=== PATIENT | female | born 1950 | race Caucasian/White ===

== ENCOUNTER 2017-03-07 02:48 | Inpatient (IN) | payer MEDICARE, OTHER ==
[~2017-03-07] VITALS: Ht 175.3 cm; Wt 106.1 kg
--- NOTE | 2017-03-07 03:02 | NUR ---
pt ambulatory w/ steady gait, c/o LUE pain radiates to neck x yesterday morning, no trauma, report tried taking advil 3 tab tid yesterday w/ no relief of pain. AOx4, afebrile w/ resp even & unlabored, denies any sob, no cp, report unable to move LUE d/t pain, CMS to LUE intact. EKG at bedside. Pending further evselvin RIDER.
--- NOTE | 2017-03-07 03:11 | NUR ---
Dr. Meléndez at bedside for further eval.
--- NOTE | 2017-03-07 03:28 | NUR ---
[facility] STARTED, LABS DRAWN & SENT. CXR AT BEDSIDE.
[2017-03-07 03:36] LABS: BASOPHILS % (AUTO) 0.5 % (0.0-2.0); EOSINOPHILS # (AUTO) 0.1 /CMM (0.0-0.7); EOSINOPHILS % (AUTO) 1.6 % (0.0-6.0); HEMATOCRIT 38 % (33-45); HEMOGLOBIN 12.8 g/dL (11.5-14.8); LYMPHOCYTES # (AUTO) 1.3 /CMM (0.8-4.8); MEAN CORPUSCULAR HEMOGLOBIN 28 PG (26.0-33.0); MEAN CORPUSCULAR HGB CONC 34 g/dl (31.0-36.0); MEAN CORPUSCULAR VOLUME 85 fL (82-100); MONOCYTES # (AUTO) 0.7 /CMM (0.1-1.30); MONOCYTES % (AUTO) 10.6 % (2.0-12.0); NEUTROPHILS # (AUTO) 4.7 /CMM (1.8-8.9); NEUTROPHILS % (AUTO) 68.3 % (43.0-81.0); PLATELET COUNT (AUTO) 218 /CMM (150-450); RDW COEFFICIENT OF VARIATION 14.2 (11.5-15.0); WHITE BLOOD COUNT (AUTO) 6.9 K/uL (4.3-11.0)
[2017-03-07 03:47] LABS: CALCIUM, SERUM 9.4 mg/dL (8.5-10.1); CARBON DIOXIDE 27 mmol/L (21-32); CHLORIDE 109 mmol/L (98-107); CREATININE 0.8 mg/dL (0.6-1.3); GLUCOSE 149 mg/dL (74-106); SODIUM SERUM 144 mmol/L (136-145); UREA NITROGEN, BLOOD 21 mg/dL (7-18)
[2017-03-07] MEDS ORDERED: MORPHINE SULFATE INJ 10 MG/ML DISP.SYRIN ONE (03:48)
[2017-03-07 03:53] LABS: ALANINE AMINOTRANSFERASE 23 U/L (12-78); ALBUMIN 3.6 g/dL (3.4-5.0); ALKALINE PHOSPHATASE 112 U/L (46-116); ASPARTATE AMINOTRANSFERASE 11 U/L (15-37); BILIRUBIN,DIRECT 0.1 mg/dL (0.0-0.2); BILIRUBIN,TOTAL 0.5 mg/dL (0.2-1.0); TOTAL PROTEIN, SERUM 6.9 g/dL (6.4-8.2)
[2017-03-07 03:55] LABS: INR 0.9 (0.87-1.13); PROTHROMBIN TIME 9.3 SECS (9.5-12.7); TROPONIN I < 0.017 ng/mL (0.00-0.056)
[2017-03-07] MEDS ORDERED: MORPHINE SULFATE INJ 2 MG/ML DISP.SYRIN IV ONE (04:00)
--- NOTE | 2017-03-07 04:30 | NUR ---
pt resting comfortably in bed w/ resp even & unlabored, continues to have LUE pain, tolerable at this time. On continuous monitoring.
--- NOTE | 2017-03-07 04:52 | NUR ---
Report given to MARTY Hernandez for BLANKA, pt admission to tele rm [id number].
--- NOTE | 2017-03-07 05:02 | NUR ---
[facility] Dr. Suzi reeves.
--- NOTE | 2017-03-07 05:33 | NUR ---
Dr. Archer on phone w/ Dr. Meléndez.
[2017-03-07] MEDS ORDERED: HYDROCODONE/APAP 5/325MG 1 EACH TABLET ONE (05:54)
[2017-03-07] MEDS ORDERED: ENOXAPARIN SODIUM 40 MG/0.4 ML DISP.SYRIN SQ ONE (05:55)
[2017-03-07] MEDS: HYDROCODONE/APAP 5/325MG 1 EACH TABLET PO PRN ×4 (05:56→18:30)
[2017-03-07 06:00] VITALS: BP 115/68
[2017-03-07] MEDS ORDERED: ZOLPIDEM TARTRATE 5 MG TABLET PO PRN (06:00)
[2017-03-07] MEDS ORDERED: Z GUARD REMEDY 2 OZ OINT TP PRN (06:00)
[2017-03-07] MEDS ORDERED: MAGNESIUM HYDROXIDE 30 ML UDC PO PRN (06:00)
[2017-03-07] MEDS ORDERED: ENOXAPARIN SODIUM 40 MG/0.4 ML DISP.SYRIN SQ SCH (06:00)
[2017-03-07] MEDS ORDERED: MAG HYDROX/AL HYDROX/SIMETH 30 ML UDC PO PRN (06:00)
[2017-03-07] MEDS ORDERED: ONDANSETRON HCL/PF 4 MG/2 ML VIAL IVP PRN (06:00)
--- NOTE | 2017-03-07 06:30 | NUR ---
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 PT C/O 8/10 LEFT ARM PAIN. NORCO 5/325 GIVEN ORDERED. BODY ASSESSMENT PERFORMED. HEART AND LUNGS AUSCULTATED. PT NOTED WITH ANXIETY AND DISCOMFORT. MED RECON DONE. ORIENTED PT TO ROOM. ENCOURAGED TO USE CALL LIGHT NEEDED. PT VERBALIZED CONCERN OF WHY SHE WAS ADMITTED TO HOSPITAL. LET PT KNOW SHES IN [facility] AND ENCOURAGED TO VERBALIZE FEELINGS. MEDS GIVEN ORDERED. WILL ENDORSE TO NEXT SHIFT FOR CONTINUITY OF CARE.
[2017-03-07] MEDS ORDERED: ROSU5TAB PO (06:46)
[2017-03-07] MEDS ORDERED: METF500T4 PO (06:46)
[2017-03-07] MEDS ORDERED: ASPI-605 PO (06:46)
[2017-03-07] MEDS ORDERED: ESCI10TA PO (06:46)
--- NOTE | 2017-03-07 08:03 | NUR ---
RN NOTE TELE- SINUS RHYTHM 90'S WITH BBB. ALL SAFETY MEASURES IN PLACE. VITAL SIGNS T 97.8, P 90, R 18, O2SAT 98%, BP 115/68.
[2017-03-07] MEDS: ASPIRIN 325 MG TABLET PO SCH (08:29)
--- NOTE | 2017-03-07 14:49 | NUR ---
PATIENT SCREAMING MOANING AND DEMANDING PAIN SHOT/STEROIDS,NOTIFIED DR. KILLIAN MADE AWARE OF SITUATION NO NEW ORDERS,NURSING SUP NOTIFIED.WILL CONTINUE TO FF.
[2017-03-07] MEDS ORDERED: ACET325T53 PO (14:54)
--- NOTE | 2017-03-07 16:53 | NUR ---
PATIENT REFUSED DISCHARGE WANT TO SEE AN ORTHO DOCTOR WHO CAN GIVE HER STEROIDS SHOT , MADE AWARE . CM NOTIFIED.
--- NOTE | 2017-03-07 17:13 | NUR ---
DR. MARIA D MIKE DC.
[2017-03-07 20:00] VITALS: BP 117/95
--- NOTE | 2017-03-07 20:00 | NUR ---
RN MS - NOTES - PT RECEIVED IN BED, AWAKE, ALERT AND ORIENTED X 4 PT IS ANXIOUS, COMPLAINING OF SHOULDER PAIN. PT IS ON ROOM AIR, NO S/S OF RESP DISTRESS. PT IS ABLE TO EAT, ABLE TO WALK TO BATHROOM PRIVILEGES. SKIN IS INTACT. PT HAS R FA 18G IV, PATENT AND INTACT. WILL CONTINUE TO MONITOR
[2017-03-07] MEDS ORDERED: DEXTROSE 50%-WATER 50 ML DISP.SYRIN IV PRN (20:30)
[2017-03-07] MEDS: ACETAMINOPHEN 325 MG TABLET PO PRN (20:42)
--- NOTE | 2017-03-07 21:00 | NUR ---
PT SAYS SHE TAKES LEXAPRO 10 MG Q HS AND CRESTOR 2.5 MG, I CALLED DR MEDEL TO CONTINUE TO THE MEDS AND HE SAID OK AND ADDED ACCUCHYOLA COHENS MILD SLIDING SCALE. PHARMACY SAYS THEY DO NOT HAVE CRESTOR 2.5 MG SO PT WILL NEED TO PROVIDE FROM HOME
[2017-03-07] MEDS: BLOOD SUGAR DIAGNOSTIC 1 EACH STRIP IN SCH (21:08)
[2017-03-07] MEDS: INSULIN REGULAR, HUMAN 100 UNIT/ML 3 ML VIAL SQ PRN (21:15)
[2017-03-07] MEDS ORDERED: ESCITALOPRAM OXALATE (10 MG) 10 MG TABLET PO SCH (22:00)
--- NOTE | 2017-03-07 22:00 | NUR ---
MS RN NOTES RECEIVED CONTINUITY OF CARE FROM [facility]. PATIENT IN BED ASLEEP. NO S/S OF PAIN OR DISCOMFORT. NO RESPIRATORY DISTRESS NOTED. SIDE RAILS UP AND LOCKED. BED KEPT AT LOWEST POSITION. CALL LIGHT KEPT WITHIN EASY REACH. WILL CONTINUE TO MONITOR.
--- NOTE | 2017-03-07 22:00 | NUR ---
REPORT GIVEN TO MARCIE FOR BLANKA
[2017-03-08] MEDS: HYDROCODONE/APAP 5/325MG 1 EACH TABLET PO PRN ×2 (00:36→04:39)
--- NOTE | 2017-03-08 01:00 | NUR ---
MS RN NOTES PATIENT AWAKE, C/O SEVERE LEFT SHOULDER PAIN, MOANING, REQUESTING FOR NORCO. PRN NORCO WAS GIVEN. AFTER MEDICATION WAS GIVEN, PATIENT APPEARS TO BE WORRIED, AND ANXIOUS, STATING "WHAT AM IS SUPPOSE TO DO NOW, I CAN'T GO HOME LIKE THIS, WHAT SHOULD I DO NOW. REDIRECTED, REASSURED PATIENT, ASSISTED TO RESTROOM. EXPLAINED TO PATIENT TO ALLOW PAIN MEDICATION TO WORK. SKIN WARM AND DRY TO TOUCH. PATIENT SAID THANK YOU. WILL CONTINUE TO MONITOR.
--- NOTE | 2017-03-08 01:50 | NUR ---
MS RN NOTES PATIENT ASLEEP IN BED, NO S/S OF PAIN OR DISCOMFORT. WILL CONTINUE TO MONITOR.
[2017-03-08 04:00] VITALS: BP 122/70
--- NOTE | 2017-03-08 07:42 | NUR ---
MS RN CLOSING NOTES PATIENT RESTING COMFORTABLY IN BED. PAIN MONITORED AND MANAGED NEEDED. NO RESPIRATORY DISTRESS NOTED. NO C/O CHEST PAIN. ALL NEEDS ANTICIPATED AND MET. SIDE RAILS UP AND LOCKED. BED KEPT AT LOWEST POSITION. CALL LIGHT KEPT WITHIN EASY REACH. CONTINUITY OF CARE ENDORSED TO AM NURSE.
[2017-03-08] MEDS: BLOOD SUGAR DIAGNOSTIC 1 EACH STRIP IN SCH ×2 (07:43→11:57)
[2017-03-08] MEDS: INSULIN REGULAR, HUMAN 100 UNIT/ML 3 ML VIAL SQ PRN ×2 (07:48→11:46)
[2017-03-08 08:00] VITALS: BP 113/57
[2017-03-08 08:04] LABS: BASOPHILS % (AUTO) 0.5 % (0.0-2.0); EOSINOPHILS # (AUTO) 0.1 /CMM (0.0-0.7); EOSINOPHILS % (AUTO) 0.6 % (0.0-6.0); HEMATOCRIT 38 % (33-45); HEMOGLOBIN 12.7 g/dL (11.5-14.8); LYMPHOCYTES # (AUTO) 1.1 /CMM (0.8-4.8); LYMPHOCYTES % (AUTO) 13.1 % (20.0-44.0); MEAN CORPUSCULAR HEMOGLOBIN 29 PG (26.0-33.0); MEAN CORPUSCULAR HGB CONC 34 g/dl (31.0-36.0); MEAN CORPUSCULAR VOLUME 85 fL (82-100); MONOCYTES # (AUTO) 0.9 /CMM (0.1-1.30); MONOCYTES % (AUTO) 10.3 % (2.0-12.0); NEUTROPHILS # (AUTO) 6.4 /CMM (1.8-8.9); NEUTROPHILS % (AUTO) 75.5 % (43.0-81.0); PLATELET COUNT (AUTO) 210 /CMM (150-450); RDW COEFFICIENT OF VARIATION 13.8 (11.5-15.0); RED BLOOD CELL COUNT(AUTO) 4.44 MIL/uL (4.0-5.2); WHITE BLOOD COUNT (AUTO) 8.5 K/uL (4.3-11.0)
[2017-03-08 08:25] LABS: CALCIUM, SERUM 9.1 mg/dL (8.5-10.1); CREATININE 0.7 mg/dL (0.6-1.3); MAGNESIUM 1.7 mg/dL (1.8-2.4); PHOSPHORUS 3.4 mg/dL (2.5-4.9); POTASSIUM 4.5 mmol/L (3.5-5.1)
[2017-03-08] MEDS: ACETAMINOPHEN 325 MG TABLET PO PRN ×2 (08:43→14:33)
[2017-03-08] MEDS: ASPIRIN 325 MG TABLET PO SCH (08:43)
[2017-03-08] MEDS ORDERED: ENOXAPARIN SODIUM 40 MG/0.4 ML DISP.SYRIN SQ SCH (09:00)
[2017-03-08] MEDS ORDERED: MAGNESIUM OXIDE 400 MG TABLET PO ONE (11:30)
[2017-03-08] MEDS ORDERED: CYCLOBENZAPRINE 10 MG TABLET PO PRN (14:00)
[2017-03-08 15:00] VITALS: BP 126/76
--- NOTE | 2017-03-08 15:30 | NUR ---
MEDICAL TECHNICIANS NOTE PT DISCHARGED HOME. PT GIVEN FLEXERIL AND TYLENOL FOR PAIN EARLIER NOW PAIN. STATES SHE IS MORE RELAXED AND PAIN IN LEFT ARM DECREASED. PT DC HOME TRANSFERRED BY FRIEND. RX FAXED TO [facility] AND PUT IN PAPERWORK. PT DISCHARGED HOME NO CHEST PAIN THROUGHOUT STAY ONLY LEFT ARM PAIN. RX FOR PT OUTPATIENT GIVEN. EXIT CARE DONE DISCHARGE PAPERWORK GIVEN TO PATIENT. ANSWERED ALL QUESTION AND CONCERNS. ARM SLING ON LEFT ARM. WHEELED OUT BY MYRIAM CORDOVA TO CAR. DC IV AND ID BAND. NO PHOTOS SKIN INTACT. PT CLEAN DRY AND BELONGING LIST SIGNED. VS WNL. BP 126/76 HR 73, T 98.0.
== END 2017-03-08 16:39 | disposition home or self-care (01) | DRG 74 ==
LOC: ER 02:50 → TELE1 04:48 → MEDSG1 08:08
PROVIDERS: ADMIT Internal Medicine; ATTEND Internal Medicine
DX: M54.12 Radiculopathy, cervical region (principal); S14.3XXA Injury of brachial plexus, initial encounter; E11.9 Type 2 diabetes mellitus without complications; R79.89 Other specified abnormal findings of blood chemistry; Z95.2 Presence of prosthetic heart valve; Z96.653 Presence of artificial knee joint, bilateral; Z90.49 Acquired absence of other specified parts of digestive tract; I44.7 Left bundle-branch block, unspecified; X58.XXXA Exposure to other specified factors, initial encounter; Y93.84 Activity, sleeping; Y92.009 Unspecified place in unspecified non-institutional (private) residence as the place of occurrence of the external cause; G45.4 Transient global amnesia
CPT/HCPCS: 36415; 71010-TC; 73030-TC; 80048-TC; 80061-TC; 80076-TC; 82962-TC; 83735-TC; 84100-TC; 84484-TC; 85025-TC; 85730-TC; 87081-TC; 93307-TC; A4606; J1650; J1815; J2270; Z7610